=== PATIENT | female | born 1975 | race American Indian/Alaskan Native ===

== ENCOUNTER 2017-07-03 12:15 | Emergency (ER) | payer MEDICAID ==
[2017-07-03] MEDS ORDERED: NORCO 10/325 PO ONE (12:37)
[2017-07-03] MEDS ORDERED: ZOFRAN ODT PO ONE (12:37)
--- NOTE | 2017-07-03 12:41 | Emergency Department Report ---
Chief Complaint: Extremity Injury, Lower Stated Complaint: LEFT HIP PAIN - HPI History of Present Illness: 42-year-old female past medical history multiple surgeries presents with complaint of left hip and buttock pain severe since yesterday. 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 Patient is currently emotionally labile and crying secondary to severe pain left hip. Patient states she felt slight popping sensation. Has difficulty standing or walking. Patient accompanied by family member at bedside. Is awake alert and oriented 3 but severely agitated. - ROS Review of Systems: left hip pain since yesterday - Exam Vital Signs: Vital Signs 07/03/17 12:22 Temperature 97.7 F Pulse Rate 61 Respiratory 16 Rate Blood Pressure 130/78 O2 Sat by Pulse 100 Oximetry Physical Exam: Patient has severe pain with range of motion left hip, awake alert and oriented 3 MSE screening note: Focused history and physical exam performed. Due to findings the following was ordered: Screening Assessment/Plan/Differential Dx: Severe left hip pain 1- This initial assessment/diagnostic orders/clinical plan/ treatment(s) is/are subject to change based on pt's health status, clinical progression and re- assessment by fellow clinical providers in the ED. Further treatment and workup at subsequent clinical provers discretion. Patient/guardians urged not to elope from ED as their condition may be serious if not clinically assessed and managed. 2- patient is nonambulatory should be seen in main ED for physician evaluation. Patient has difficulty ranging left hip or standing up 3- xrays of left hip lower back and left femur ordered 4- 1 dose of [place] ED Disposition for MSE Condition: Stable
--- NOTE | 2017-07-03 13:46 | XRay Report ---
BILATERAL HIPS WITH PELVIS, 3 VIEWS: History: Pain. Findings: Bone mineralization is within normal limits. There is no evidence for fracture, dislocation or pelvic diastasis. No advanced joint pathology is detected. The soft tissues are unremarkable. Impression: Unremarkable exam.
--- NOTE | 2017-07-03 13:46 | XRay Report ---
LEFT FEMUR: HISTORY: pain AP and lateral views of the femur demonstrate normal mineralization and contours for this patient's age. No destructive changes are noted and the adjacent soft tissues are normal. IMPRESSION: Unremarkable left femur.
--- NOTE | 2017-07-03 13:47 | XRay Report ---
LUMBOSACRAL SPINE, 3 VIEWS: History: Lower back pain with radiation to left buttock Findings: There is mild to moderate multilevel degenerative disc disease and facet arthropathy. All levels are affected. No evidence for fracture, bone lesion or malalignment. Mild symmetric degenerative changes in the SI joints. Impression: Lumbar spondylosis. No evidence for acute injury to the lumbar spine.
--- NOTE | 2017-07-03 14:37 | Emergency Department Report ---
ED Extremity Problem HPI - General Chief complaint: Extremity Injury, Lower Stated complaint: LEFT HIP PAIN Time Seen by Provider: 07/03/17 14:14 Source: patient, family Mode of arrival: Wheelchair Limitations: Other - History of Present Illness -: days(s) (1) Location: left, lower extremity History of Same: No Radiation: distal Severity scale (0 -10): 2 Quality: aching Consistency: constant Improves with: nothing Worsens with: weight bearing, walking, exertion, palpation Associated Symptoms: denies other symptoms - Related Data Home Medications Medication Instructions Recorded Confirmed Last Taken Cholecalciferol (Vitamin D3) 5,000 unit PO QWEEK 06/03/14 06/03/14 05/28/14 [Vitamin D] Oxycodone HCl/Acetaminophen 1 each PO Q6HR PRN 06/03/14 06/03/14 06/03/14 [OxyCODONE-Acetaminophen 10-325] Rivaroxaban [Xarelto] 10 mg PO QDAY 06/03/14 06/03/14 06/03/14 Previous Rx's Medication Instructions Recorded Last Taken Type Cyclobenzaprine HCl [Flexeril 5 MG 5 mg PO TID #14 tab 07/03/17 Unknown Rx TAB] Naproxen Sodium 550 mg PO BID #14 tablet 07/03/17 Unknown Rx Allergies Allergy/AdvReac Type Severity Reaction Status Date / Time No Known Allergies Allergy Verified 02/14/13 10:46 ED Review of Systems ROS: Stated complaint: LEFT HIP PAIN Other details as noted in HPI Comment: All other systems reviewed and negative Constitutional: denies: chills, fever Eyes: denies: eye pain, eye discharge, vision change ENT: denies: ear pain, throat pain Respiratory: denies: cough, shortness of breath, wheezing Cardiovascular: denies: chest pain, palpitations Endocrine: no symptoms reported Gastrointestinal: denies: abdominal pain, nausea, diarrhea Genitourinary: denies: urgency, dysuria, discharge Musculoskeletal: as per HPI, myalgia. denies: back pain, joint swelling, arthralgia Skin: denies: rash, lesions Neurological: denies: headache, weakness, paresthesias Psychiatric: denies: anxiety, depression Hematological/Lymphatic: denies: easy bleeding, easy bruising ED Past Medical Hx - Past Medical History Previous Medical History?: Yes Hx Hypertension: Yes Hx Diabetes: No (gestational) Hx GERD: Yes Hx Arthritis: Yes Hx Headaches / Migraines: Yes (MIGRAINES) Hx Asthma: Yes - Surgical History Hx Cholecystectomy: Yes (2012) Additional Surgical History: partial hysterectomy, right knee replacement, gatric sleeve 2013 - Social History Smoking Status: Current Some Day Smoker Substance Use Type: None - Medications Home Medications: Home Medications Medication Instructions Recorded Confirmed Last Taken Type Cholecalciferol (Vitamin D3) 5,000 unit PO QWEEK 06/03/14 06/03/14 05/28/14 History [Vitamin D] Oxycodone HCl/Acetaminophen 1 each PO Q6HR PRN 06/03/14 06/03/14 06/03/14 History [OxyCODONE-Acetaminophen 10-325] Rivaroxaban [Xarelto] 10 mg PO QDAY 06/03/14 06/03/14 06/03/14 History Cyclobenzaprine HCl [Flexeril 5 MG 5 mg PO TID #14 tab 07/03/17 Unknown Rx TAB] Naproxen Sodium 550 mg PO BID #14 tablet 07/03/17 Unknown Rx ED Physical Exam - General Limitations: Other General appearance: alert, in no apparent distress - Head Head exam: Present: atraumatic, normocephalic - Eye Eye exam: Present: normal appearance - ENT ENT exam: Present: mucous membranes moist - Neck Neck exam: Present: normal inspection - Respiratory Respiratory exam: Present: normal lung sounds bilaterally. Absent: respiratory distress - Cardiovascular Cardiovascular Exam: Present: regular rate, normal rhythm. Absent: systolic murmur, diastolic murmur, rubs, gallop - GI/Abdominal GI/Abdominal exam: Present: soft, normal bowel sounds - Extremities Exam Extremities exam: Present: normal inspection - Expanded Lower Extremity Exam Left Hip exam: Present: normal inspection, tenderness. Absent: swelling, external rotation, internal rotation Upper Leg exam: Present: normal inspection. Absent: tenderness Knee exam: Present: normal inspection Lower Leg exam: Present: normal inspection Ankle exam: Present: normal inspection Foot/Toe exam: Present: normal inspection Neuro vascular tendon exam: Present: no vascular compromise - Back Exam Back exam: Present: normal inspection - Neurological Exam Neurological exam: Present: alert, oriented X3 - Psychiatric Psychiatric exam: Present: normal affect, normal mood - Skin Skin exam: Present: warm, dry, intact, normal color. Absent: rash ED Course Vital Signs 07/03/17 07/03/17 12:22 13:20 Temperature 97.7 F Pulse Rate 61 Respiratory 16 18 Rate Blood Pressure 130/78 O2 Sat by Pulse 100 Oximetry - Reevaluation(s) Reevaluation #1: 07/03/17 14:39 Some improvement. ED Medical Decision Making - Radiology Data Radiology results: report reviewed Left Hip and Femur - no acute process. Lumbar xr report reveals degenerative changes. - Medical Decision Making Discussed radiology results. Informed patient I would Rx for NSAID and muscle relaxer. Critical care attestation.: If time is entered above; I have spent that time in minutes in the direct care of this critically ill patient, excluding procedure time. ED Disposition Clinical Impression: Strain of left hip adductor muscle, Degenerative arthritis, Strain of hip flexor, Strain of hip adductor muscle Disposition: [id number] TO HOME OR SELFCARE Is pt being admited?: No Does the pt Need Aspirin: No Condition: Stable Instructions: Muscle Strain (ED) Prescriptions: Cyclobenzaprine HCl [Flexeril 5 MG TAB] 5 mg PO TID #14 tab Naproxen Sodium 550 mg PO BID #14 tablet
[2017-07-03 15:12] VITALS: BP 113/74
== END 2017-07-03 15:15 | disposition home or self-care (01) ==
LOC: ED 12:15
DX: S76.212A Strain of adductor muscle, fascia and tendon of left thigh, initial encounter (principal); M19.90 Unspecified osteoarthritis, unspecified site; I10 Essential (primary) hypertension; K21.9 Gastro-esophageal reflux disease without esophagitis; G43.909 Migraine, unspecified, not intractable, without status migrainosus; J45.909 Unspecified asthma, uncomplicated; F17.200 Nicotine dependence, unspecified, uncomplicated; Z90.49 Acquired absence of other specified parts of digestive tract; Z90.711 Acquired absence of uterus with remaining cervical stump
CPT/HCPCS: 72100; 73521; 99283; Q0162

== ENCOUNTER 2017-08-19 10:10 | Outpatient (CLI) | payer MEDICAID ==
[2017-08-19 11:33] LABS: Hematocrit 46.3 % (30.3-42.9); Hemoglobin 15.8 gm/dl (10.1-14.3); Mean Corpuscular HGB Conc 34 % (30-34); Mean Corpuscular Hemoglobin 30 pg (28-32); Mean Corpuscular Volume 89 fl (79-97); Platelet Count 232 K/mm3 (140-440); Red Cell Distribution Width 14.4 % (13.2-15.2)
[2017-08-19 11:51] LABS: Alanine Aminotransferase 12 units/L (7-56); Albumin 3.3 g/dL (3.9-5); BUN/Creatinine Ratio 10; Blood Urea Nitrogen 9 mg/dL (7-17); Chol/HDL Ratio 3.25 %; HDL Cholesterol 55 mg/dL (40-59); Hemolysis Index 5; LDL Cholesterol,Direct 124 mg/dL (50-130)
--- NOTE | 2017-08-25 12:54 | XRay Report ---
CHEST 2 VIEWS INDICATION: Asthma. COMPARISON: 03/06/2014 FINDINGS: PA and lateral chest radiographs demonstrate normal cardiomediastinal silhouette. Clear, well-expanded lungs without pleural effusion or CHF. Mild lower thoracic spine degenerative spurring. CONCLUSION: No acute chest process, as described. Thank you for the opportunity to participate in this patient's care.
== END 2017-08-19 10:11 | disposition home or self-care (01) ==
LOC: XRAY 10:10
PROVIDERS: ATTEND Internal Medicine
DX: J45.998 Other asthma (principal); M46.04 Spinal enthesopathy, thoracic region; F17.210 Nicotine dependence, cigarettes, uncomplicated; E11.9 Type 2 diabetes mellitus without complications; G47.30 Sleep apnea, unspecified; I10 Essential (primary) hypertension; M19.90 Unspecified osteoarthritis, unspecified site; E66.01 Morbid (severe) obesity due to excess calories; F32.9 Major depressive disorder, single episode, unspecified; E07.9 Disorder of thyroid, unspecified; K21.9 Gastro-esophageal reflux disease without esophagitis; Z90.49 Acquired absence of other specified parts of digestive tract; Z90.710 Acquired absence of both cervix and uterus
CPT/HCPCS: 36415; 71046; 80053; 80061; 82785; 84436; 84443; 85027